=== PATIENT | male | born 1985 | race Caucasian/White ===

== ENCOUNTER 2023-06-10 03:11 | Emergency (ER) | payer OTHER ==
[~2023-06-10] VITALS: Ht 175.3 cm; Wt 100.0 kg
[2023-06-10] MEDS ORDERED: ketorolac trometh. 30mg/ml inj. IV ONE (04:05)
[2023-06-10] MEDS ORDERED: iohexol 300mg/ml 100ml inj. ONE (04:11)
[2023-06-10] MEDS: ketorolac tromethamine 15mg/ml inj. IV ONE (04:23)
[2023-06-10] MEDS: ondansetron/PF 4mg/2ml inj IV ONE (04:24)
[2023-06-10] MEDS: HYDROcodone/acetaminophen 5mg/325mg tablet PO ONE (04:24)
[2023-06-10] MEDS ORDERED: CYCL-1 PO (05:25)
[2023-06-10] MEDS: orphenadrine citrate 60mg/2ml inj. IM ONE (05:37)
[2023-06-10 05:48] VITALS: BP 115/77; PULSE 58; RESP 16; TEMP 98; O2SAT 96
== END 2023-06-10 05:30 | disposition home or self-care (01) ==
LOC: ER 03:12
DX: M54.2 Cervicalgia (principal); Z79.899 Other long term (current) drug therapy
CPT/HCPCS: 70491; 96372; 96374; 96375; 99285; J1885; J2360; J2405; J3490; Q9967

== ENCOUNTER 2023-12-28 15:03 | Emergency (ER) | payer OTHER ==
[~2023-12-28] VITALS: Ht 175.3 cm; Wt 100.7 kg
[~2023-12-28 15:03] MED LIST: CYCL-1 PO
[2023-12-28 15:23] LABS: BASOPHILS # (AUTO) 0.1 X10'3 (0-0.2); BASOPHILS % (AUTO) 0.6 % (0-1); EOSINOPHILS # (AUTO) 0.2 X10'3 (0-0.9); EOSINOPHILS % (AUTO) 2.6 % (0-6); HEMATOCRIT 45.8 % (42.0-52.0); HEMOGLOBIN 15.6 g/dl (14.0-17.9); LYMPHOCYTES # (AUTO) 3.1 X10'3 (1.1-4.8); LYMPHOCYTES % (AUTO) 35.9 % (21-51); MEAN CORPUSCULAR HEMOGLOBIN 31.9 PG (27.0-31.0); MEAN CORPUSCULAR HGB CONC 34.1 g/dL (33.0-36.5); MEAN CORPUSCULAR VOLUME 93.6 FL (78-98); MEAN PLATELET VOLUME 7.9 FL (7.4-10.4); MONOCYTES # (AUTO) 0.9 X10'3 (0-0.9); NEUTROPHILS # (AUTO) 4.3 X10'3 (1.8-7.7); NEUTROPHILS % (AUTO) 50.9 % (42-75); PLATELET COUNT 234 X10'3 (140-440); RED BLOOD COUNT 4.89 X10'6 (4.70-6.10); RED CELL DISTRIBUTION WIDTH 12.4 % (11.5-14.5); WHITE BLOOD COUNT 8.6 X10'3 (4.5-11.0)
[2023-12-28 15:32] LABS: ALBUMIN 3.9 G/DL (3.4-5.0); ANION GAP 4 (8-16); BLOOD UREA NITROGEN 19 MG/DL (7-18); CALCIUM 9.2 MG/DL (8.5-10.1); CHLORIDE 101 MMOL/L (99-107); CREATININE 1.36 MG/DL (0.60-1.10); GLUCOSE 94 MG/DL (70-104); POTASSIUM 3.8 MMOL/L (3.5-5.1); SODIUM 136 MMOL/L (135-145); TOTAL CARBON DIOXIDE 30.6 MMOL/L (24-32); eCRCL 74 ML/MIN; eGFR 59 ML/MIN
[2023-12-28 15:37] LABS: APTT 26 SECONDS (22-32); PROTHROMBIN TIME 10.9 SECONDS (9.0-12.0)
[2023-12-28] MEDS ORDERED: valproate sod inj 500 MG in normal saline 50ml IV soln 50 ML IV ONE (15:50)
[2023-12-28] MEDS: metoclopramide 5 mg/ml inj IV ONE (16:49)
[2023-12-28] MEDS: normal saline 1000ML IV soln IVB ONE (16:49)
[2023-12-28] MEDS: morphine 2 MG/ML inj. syringe IV PRN (16:51)
[2023-12-28] MEDS: magnesium sulf-water 2g/50mL 50 ML IV ONE (17:14)
[2023-12-28] MEDS: valproate sod inj 500 MG in dextrose 5%-water 50ml 50 ML IV ONE (17:14)
[2023-12-28] MEDS: diphenhydrAMINE 50 mg/ml inj IV ONE (18:57)
[2023-12-28] MEDS: ketorolac trometh 15mg/ml vial 15 MG/ML ML IV ONE (18:57)
[2023-12-28] MEDS: dexamethasone 4mg/ml inj IV ONE (18:57)
[2023-12-28 19:37] VITALS: BP 116/76; PULSE 58; RESP 16; TEMP 97.9; O2SAT 98
== END 2023-12-28 19:46 | disposition home or self-care (01) ==
LOC: ER 15:04
DX: G43.909 Migraine, unspecified, not intractable, without status migrainosus (principal); Z79.899 Other long term (current) drug therapy; R20.0 Anesthesia of skin
CPT/HCPCS: 36415; 70450; 71045; 80048; 82948; 85025; 85610; 85730; 93005; 96365; 96368; 96375; 99285; J1100; J1200; J1885; J2270; J2765; J3490; J7030; J7060